=== PATIENT | female | born 1990 | race Two or more races ===

== ENCOUNTER 2020-10-13 00:03 | Observation (INO) | payer SELFPAY ==
[2020-10-13] MEDS ORDERED: MORPHINE SULFATE 10 MG/ML INJ IV ONE (00:15)
[2020-10-13] MEDS ORDERED: NORMAL SALINE 1000 ML 1,000 ML IV ONE ×2 (00:15→01:13)
[2020-10-13] MEDS ORDERED: ONDANSETRON HCL INJ/PF 4 MG/2 ML SDV IV ONE ×2 (00:15→17:45)
--- NOTE | 2020-10-13 00:18 | ER Document Report ---
ED Medical Screen (RME) - General Stated Complaint: UPPER STOMACH PAIN,BLOATED,CONSTIPATION Time Seen by Provider: 10/13/20 00:12 Notes: Patient is a 30-year-old female presents emergency department with a chief complaint of abdominal pain, nausea, and vomiting. Patient reports that her symptoms started at 8:00 tonight. The pain is generalized. States that she has problems with constipation, but had a bowel movement today. Exam: Tender generalized abdomen. I have greeted and performed a rapid initial assessment of this patient. A comprehensive ED assessment and evaluation of the patient, analysis of test results and completion of medical decision making process will be conducted by an additional ED providers. Physical Exam - Vital signs Vitals: Temp Pulse Resp BP Pulse Ox 98.6 F 75 18 109/65 100 10/13/20 00:10 10/13/20 00:10 10/13/20 00:10 10/13/20 00:10 10/13/20 00:10 Course - Vital Signs Vital signs: Temp Pulse Resp BP Pulse Ox 98.6 F 75 18 109/65 100 10/13/20 00:10 10/13/20 00:10 10/13/20 00:10 10/13/20 00:10 10/13/20 00:10
[2020-10-13 00:56] LABS: ABSOLUTE BASOPHILS # (AUTO) 0.1 10^3/uL (0.0-0.2); ABSOLUTE LYMPHOCYTES (AUTO) 2.2 10^3/uL (0.5-4.7); ABSOLUTE MONOCYTES (AUTO) 0.7 10^3/uL (0.1-1.4); ABSOLUTE NEUT (AUTO) 13.2 10^3/uL (1.7-8.2); BASOPHILS % (AUTO) 0.5 % (0-2); EOSINOPHILS % (AUTO) 0.2 % (0-6); HEMATOCRIT 40.3 % (36.0-47.0); HEMOGLOBIN 13.6 g/dL (12.0-15.5); LYMPHOCYTES % (AUTO) 13.6 % (13-45); MEAN CORPUSCULAR HEMOGLOBIN 28.7 pg (27.0-33.4); MEAN CORPUSCULAR HGB CONC 33.8 g/dL (32.0-36.0); MEAN CORPUSCULAR VOLUME 85 fl (80-97); MONOCYTES % (AUTO) 4.2 % (3-13); PLATELET COUNT 324 10^3/uL (150-450); RED BLOOD COUNT 4.74 10^6/uL (3.72-5.28); RED CELL DISTRIBUTION WIDTH 12.7 % (11.5-14.0); SEGMENTED NEUTROPHILS % (AUTO) 81.5 % (42-78); TOTAL CELLS COUNTED % (AUTO) 100 %; WHITE BLOOD COUNT 16.3 10^3/uL (4.0-10.5)
[2020-10-13 01:09] LABS: ALBUMIN 4.3 g/dL (3.5-5.0); ALKALINE PHOSPHATASE 81 U/L (38-126); ANION GAP 10 (5-19); ASPARTATE AMINO TRANSFERASE 26 U/L (14-36); BILIRUBIN,DIRECT 0.2 mg/dL (0.0-0.4); BILIRUBIN,TOTAL 0.3 mg/dL (0.2-1.3); BLOOD UREA NITROGEN 13 mg/dL (7-20); CALCIUM 9.4 mg/dL (8.4-10.2); CARBON DIOXIDE 28 mmol/L (22-30); CHLORIDE 103 mmol/L (98-107); GLUCOSE 124 mg/dL (75-110); POTASSIUM 4.1 mmol/L (3.6-5.0); TOTAL PROTEIN 7.6 g/dL (6.3-8.2)
--- NOTE | 2020-10-13 01:19 | ER Document Report ---
ED GI/ - General Chief Complaint: Abdominal Pain Stated Complaint: UPPER STOMACH PAIN,BLOATED,CONSTIPATION Time Seen by Provider: 10/13/20 00:12 Mode of Arrival: Ambulatory Information source: Patient Notes: 30-year-old female presents to ED for complaint of right upper abdominal pain with nausea and vomiting. She states she has had abdominal pain off and on for years comes and go 2 days ago she had some severe pain but it went away then again today at 7 PM she started with abdominal pain nausea and vomiting. She states she had very small brown stools this morning. She states she also has generalized abdominal pain but the worst is on the left upper quadrant. He did states she was seen at another hospital recently and told she had diverticulitis and started on antibiotics. She states she has also been told she has severe constipation. She denies any fevers. She was seen on triage had blood work urine IV fluids morphine and Zofran ordered. She was also ordered a CT IV and oral contrasted abdomen pelvis. Constitutional: Negative for fever. HENT: Negative for sore throat. Eyes: Negative for visual changes. Cardiovascular: Negative for chest pain. Respiratory: Negative for shortness of breath. Gastrointestinal: Severe abdominal pain mostly on the right upper side. She states she has had this pain off and on for a year she had a couple days ago and that she has it again tonight. She states it feels like something is tearing inside of her belly. According to the she is constantly constipated. Genitourinary: Negative for dysuria. Musculoskeletal: Negative for back pain. Skin: Negative for rash. Neurological: Negative for headaches, weakness or numbness. 10 point ROS negative except as marked above and in HPI. VITAL SIGNS: Within normal limits. GENERAL: No acute distress, non-toxic appearance. HEAD: Normal with no signs of head trauma. EYES: PERRLA, EOMI, conjunctiva normal, no discharge. EARS: Hearing grossly intact. NOSE: Normal. THROAT: Oropharynx is normal. NECK: Normal range of motion, no tenderness, supple, no lymphadenopathy, No adenopathy, no JVD. CHEST: Clear breath sounds bilaterally. No wheezes, rales, or rhonchi. CARDIAC: Regular rate and rhythm. S1 and S2, without murmurs, gallops, or rubs. VASCULAR: No Edema. Peripheral pulses normal and equal in all extremities. ABDOMEN: Generalized abdominal tenderness. Hyperactive bowel sounds throughout. Patient curled up in a ball from the pain. GASTROINTESTINAL: Hyperactive bowel sounds normal GENITOURINARY: Normal, No tenderness LYMPATHTIC: No lymphadenopathy noted. MUSCULOSKELETAL: Good range of motion of all major joints. Extremities without clubbing, cyanosis or edema. NEUROLOGICAL: Alert and oriented x 3. No focal sensory or strength deficits. Speech normal. Follows commands appropriately. PSYCHIATRIC: Normal Affect, judgement and mood. SKIN: Normal appearance with no rashes or lesions. - HPI Patient complains to provider of: Abdominal pain - Generalized worse on the right upper, Vomiting Onset: Other - Intermittently for the last year worse 2 days ago and again today Timing/Duration: Intermittent Quality of pain: Burning, Stabbing Severity at maximum: Severe Severity in ED: Severe Pain Level: 5 Location: LUQ, LLQ LMP: September 26, 2020 Associated symptoms: Nausea, Vomiting Exacerbated by: Movement, Walking Relieved by: Denies Similar symptoms previously: Yes Recently seen / treated by doctor: Yes - Related Data Allergies/Adverse Reactions: No Known Allergies Allergy (Unverified 10/13/20 01:08) Past Medical History - General Information source: Patient - Social History Smoking Status: Never Smoker Frequency of alcohol use: None Drug Abuse: None Lives with: Family Family History: Reviewed & Not Pertinent Patient has suicidal ideation: No Patient has homicidal ideation: No - Past Medical History Cardiac Medical History: Reports: None Pulmonary Medical History: Reports: None EENT Medical History: Reports: None Neurological Medical History: Reports: None Endocrine Medical History: Reports: None Renal/ Medical History: Reports: None Malignancy Medical History: Reports: None GI Medical History: Reports: None, Other - colitis Musculoskeletal Medical History: Reports None Skin Medical History: Reports None Traumatic Medical History: Reports: None Infectious Medical History: Reports: None Past Surgical History: Reports: Hx Section - Immunizations Immunizations up to date: Yes Physical Exam - Vital signs Vitals: Temp Pulse Resp BP Pulse Ox 98.6 F 75 18 109/65 100 10/13/20 00:10 10/13/20 00:10 10/13/20 00:10 10/13/20 00:10 10/13/20 00:10 Course - Vital Signs Vital signs: Temp Pulse Resp BP Pulse Ox 98.6 F 75 18 109/65 100 10/13/20 00:10 10/13/20 00:10 10/13/20 00:10 10/13/20 00:10 10/13/20 00:10 10/13/20 07:10 Ultrasound of abdomen with negative for cholecystitis but the CT with IV and oral contrast was positive for cholecystitis. I discussed these results with Dr. Hidalgo. She did have an elevated white count of 16.4. I consulted Dr. Aguilera who stated that she needed a negative Covid in order to go to surgery. That was completed and negative. I called him back stated he would be taking her to surgery to go ahead and admit her to him. He did recommend that I give her Zosyn IV when I call him the first time. This was completed. Patient has been admitted to Dr. Aguilera to go for a cholecystectomy. - Laboratory Results Result Diagrams: 10/13/20 00:31 10/13/20 00:31 Laboratory Results Interpreted: 10/13/20 10/13/20 10/13/20 00:31 00:31 01:09 WBC 16.3 H Absolute Neuts (auto) 13.2 H Seg Neutrophils % 81.5 H Glucose 124 H Urine Ketones TRACE H Urine Ascorbic Acid 40 H Critical Laboratory Results Reviewed: No Critical Results - Radiology Results Critical Radiology Results Reviewed: Yes Attending or Supervising Physician who Reviewed Radiology: TATUM HIDALGO IV Discharge - Discharge Clinical Impression: Cholecystitis Disposition: ADMITTED INPATIENT Admitting Provider: Arthur Aguilera Unit Admitted: Surgical Floor
[2020-10-13 01:41] LABS: APPEARANCE,URINE SLIGHTLY-CLOUDY; BILIRUBIN,URINE NEGATIVE (NEGATIVE); COLOR,URINE YELLOW; GLUCOSE, URINE NEGATIVE (NEGATIVE); KETONES,URINE TRACE mg/dL (NEGATIVE); LEUKOCYTE ESTERASE,URINE NEGATIVE (NEGATIVE); NITRITE,URINE NEGATIVE (NEGATIVE); PROTEIN,URINE NEGATIVE (NEGATIVE); URINE SPECIFIC GRAVITY 1.019; UROBILINOGEN,URINE NEGATIVE mg/dL (<2.0)
--- NOTE | 2020-10-13 03:41 | RADIOLOGY REPORT (SQ) ---
Ultrasound of the right upper quadrant of the abdomen: 10/13/2020 2:38 AM [employer]UAL [employer]ENT Technique: Multiple grayscale color Doppler images of the right upper quadrant of the abdomen were obtained. Comparison: None available History: 30-year old patient with right upper quadrant abdominal pain. Findings: The visualized portions of the hepatic parenchyma appears normal. There is normal direction of flow seen in the main portal vein. There is no evidence of pericholecystic fluid, gallbladder wall thickening, or cholelithiasis. Sonographic Valadez's sign was positive. The common duct measures 2-3 mm. The right kidney measures up to 11.1 cm in length. The right kidney demonstrates normal cortical echogenicity with no evidence to suggest hydronephrosis. The visualized portions of the IVC, abdominal aorta, and pancreatic head appear normal. No free intraperitoneal fluid is seen. Impression: The gallbladder is mildly distended without evidence of cholelithiasis. Sonographic Valadez's sign was reported to be positive. The common duct is within normal limits.
--- NOTE | 2020-10-13 04:52 | RADIOLOGY REPORT (SQ) ---
CLINICAL HISTORY: abdominal pain COMPARISON: None. 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 FINDINGS: Lower lungs are clear. Abdomen: The liver is normal in appearance. There is no biliary dilatation. Gallbladder wall is mildly thickened measuring up to 5 mm. Stomach is mildly distended with fluid. The pancreas and spleen are normal in appearance. The adrenal glands and kidneys are unremarkable. Abdominal aorta is normal in course and caliber without aneurysm. There is no free air. There is no retroperitoneal adenopathy. Pelvis: There is no bowel obstruction. Urinary bladder is unremarkable. There is no free fluid. Appendix is normal. Uterus is normal in size. Skeleton: There are no acute osseous findings. No suspicious bony lesions. IMPRESSION: Probable acute cholecystitis.
[2020-10-13] MEDS ORDERED: PIPERACILLIN/TAZOBACTAM 3.375 GM VIAL IV ONE (05:15)
[2020-10-13] MEDS ORDERED: DEXTROSE 5%-LACTATED RINGERS 1,000 ML IV PRN (06:46)
[2020-10-13] MEDS ORDERED: MORPHINE SULFATE 10 MG/ML INJ IV PRN ×2 (06:46→09:14)
[2020-10-13] MEDS ORDERED: BUPIVACAINE HCL 0.25 % INJ/PF (2.5 MG/1 ML) 30 ML VIAL ONE (08:01)
[2020-10-13] MEDS ORDERED: FENTANYL CITRATE INJ/PF 100 MCG/2 ML AMPUL ONE (08:11)
[2020-10-13] MEDS ORDERED: MIDAZOLAM 2 MG/2 ML INJ ONE (08:11)
[2020-10-13] MEDS ORDERED: MORPHINE SULFATE 10 MG/ML INJ ONE (08:11)
[2020-10-13] MEDS ORDERED: PROPOFOL INJ 200 MG/20 ML VIAL IV ONE (08:12)
[2020-10-13] MEDS ORDERED: SUGAMMADEX SODIUM 200 MG/2 ML SDV IV ONE (08:12)
--- NOTE | 2020-10-13 08:51 | PDOC H&P ---
History of Present Illness Admission Date/PCP: 10/13/20 06:54 Patient complains of: severe right upper quadrant pain History of Present Illness: MARISSA FABIAN is a 30 year old female with a 1 month history of worsening, episodic right upper quadrant pain. Patient reports that it is exacerbated by eating, especially fatty foods. The pain starts in the right upper quadrant, and radiates around to the back and to the left upper quadrant. Her pain is now constant and unrelenting. She presented to the emergency department where work- up was performed. She does report nausea and vomiting. She denies alcohol use, steroids, smoking, excessive caffeine ingestion, or excessive NSAID use. She has been taking Tylenol, Aleve, and Zofran at home without improvement of her symptoms. The patient denies chest pain, shortness of breath, fevers, chills, melena, hematochezia, hematemesis, dizziness, orthostasis, blurry vision, headache. Past Medical History Cardiac Medical History: Reports: None Pulmonary Medical History: Reports: None EENT Medical History: Reports: None Neurological Medical History: Reports: None Endocrine Medical History: Reports: None Renal/ Medical History: Reports: None Malignancy Medical History: Reports: None GI Medical History: Reports: None, Other - colitis Musculoskeltal Medical History: Reports: None Skin Medical History: Reports: None Traumatic Medical History: Reports: None Infectious Medical History: Reports: None Past Surgical History Past Surgical History: Reports: Section Social History Lives with: Family Smoking Status: Never Smoker Frequency of Alcohol Use: None Hx Recreational Drug Use: No Hx Prescription Drug Abuse: No Family History Family History: Reviewed & Not Pertinent Parental Family History Reviewed: Yes Children Family History Reviewed: Yes Sibling(s) Family History Reviewed.: Yes Medication/Allergy Allergies/Adverse Reactions: No Known Allergies Allergy (Unverified 10/13/20 01:08) Review of Systems Constitutional: ABSENT: chills, fatigue, fever(s), weakness Eyes: ABSENT: visual disturbances Ears: ABSENT: hearing changes Nose, Mouth, and Throat: ABSENT: sore throat Cardiovascular: ABSENT: chest pain Respiratory: ABSENT: cough Gastrointestinal: PRESENT: abdominal pain, bloating, nausea, vomiting. ABSENT: hematemesis, hematochezia, melena Genitourinary: ABSENT: dysuria Musculoskeletal: PRESENT: back pain Integumentary: ABSENT: pruritus, rash Neurological: ABSENT: confusion, convulsions, dizziness Psychiatric: ABSENT: anxiety, hallucinations Endocrine: ABSENT: cold intolerance, heat intolerance Hematologic/Lymphatic: ABSENT: easy bleeding, easy bruising Physical Exam Vital Signs: Temp Pulse Resp BP Pulse Ox 98.6 F 75 18 109/65 100 10/13/20 00:10 10/13/20 00:10 10/13/20 00:10 10/13/20 00:10 10/13/20 00:10 Intake & Output 10/12/20 10/13/20 10/14/20 06:59 06:59 06:59 Intake Total 1000 Balance 1000 Weight 64.41 kg General appearance: PRESENT: cooperative Head exam: PRESENT: atraumatic, normocephalic Eye exam: PRESENT: EOMI, PERRLA. ABSENT: scleral icterus Mouth exam: PRESENT: neck supple Neck exam: ABSENT: meningismus, tenderness, thyromegaly, tracheal deviation Respiratory exam: PRESENT: unlabored. ABSENT: tachypnea, wheezes Cardiovascular exam: ABSENT: tachycardia Vascular exam: PRESENT: normal capillary refill GI/Abdominal exam: PRESENT: guarding - righ upper quadrant, Valadez's sign, soft, tenderness - right upper quadrant. ABSENT: distended Rectal exam: PRESENT: deferred Extremities exam: ABSENT: clubbing Musculoskeletal exam: ABSENT: deformity Neurological exam: PRESENT: alert, awake, oriented to person, oriented to place, oriented to time, oriented to situation Psychiatric exam: ABSENT: agitated, anxious Focused psych exam: ABSENT: delusional Skin exam: ABSENT: cyanosis, erythema, jaundice Results Laboratory Results: 10/13/20 00:31 10/13/20 00:31 10/13/20 10/13/20 10/13/20 00:31 00:31 01:09 WBC 16.3 H RBC 4.74 Hgb 13.6 Hct 40.3 MCV 85 MCH 28.7 MCHC 33.8 RDW 12.7 Plt Count 324 Seg Neutrophils % 81.5 H Sodium 140.7 Potassium 4.1 Chloride 103 Carbon Dioxide 28 Anion Gap 10 BUN 13 Creatinine 0.74 Est GFR ( Amer) > 60 Glucose 124 H Calcium 9.4 Total Bilirubin 0.3 AST 26 Alkaline Phosphatase 81 Total Protein 7.6 Albumin 4.3 Lipase 146.5 Urine Color YELLOW Urine Appearance SLIGHTLY-CLOUDY Urine pH 6.0 Ur Specific [place] 1.019 Urine Protein NEGATIVE Urine Glucose (UA) NEGATIVE Urine Ketones TRACE H Urine Blood NEGATIVE Urine Nitrite NEGATIVE Ur Leukocyte Esterase NEGATIVE Urine WBC (Auto) 3 Urine RBC (Auto) 2 Impressions: Abdomen/Pelvis CT 10/13/20 00:00 IMPRESSION: Probable acute cholecystitis. Assessment & Plan - Diagnosis (1) Cholecystitis Is this a current diagnosis for this admission?: Yes - Time Anticipated Discharge Disposition: Home, Self Care Anticipated Discharge Timeframe: within 24 hours - Plan Summary Plan Summary: 30-year-old female with history, physical, and imaging consistent with acute cholecystitis. I have recommended surgical intervention, and she has agreed. Plan for laparoscopic cholecystectomy today. Risks/benefits discussed, informed consent obtained, and all questions answered.
[2020-10-13] MEDS ORDERED: DIPHENHYDRAMINE HCL 50 MG/ML VIAL IV PRN (09:14)
[2020-10-13] MEDS ORDERED: ONDANSETRON HCL INJ/PF 4 MG/2 ML SDV IV PRN (09:14)
[2020-10-13] MEDS ORDERED: MEPERIDINE HCL/PF INJ 25 MG/1 ML DISP.SYRIN IV PRN (09:14)
[2020-10-13] MEDS ORDERED: PROMETHAZINE HCL INJ 25 MG/1 ML VIAL IV PRN (09:14)
[2020-10-13] MEDS ORDERED: OXYCODONE-ACETAMINOPHEN 5-325 MG TABLET PO PRN ×2 (09:14)
[2020-10-13] MEDS ORDERED: FENTANYL CITRATE INJ/PF 100 MCG/2 ML AMPUL IV PRN ×3 (09:14)
--- NOTE | 2020-10-13 09:47 | Operative Report ---
Nonrecallable Operative Report DATE OF SURGERY: 10/13/20 PREOPERATIVE DIAGNOSIS: Acute cholecystitis POSTOPERATIVE DIAGNOSIS: Same as above OPERATION: Laparoscopic cholecystectomy SURGEON: CHARIS CARROLL ANESTHESIA: GA TISSUE REMOVED OR ALTERED: Gallbladder COMPLICATIONS: None apparent ESTIMATED BLOOD LOSS: Minimal PROCEDURE: Drains/implants: None. Procedure in detail: After informed consent was obtained, the patient was brought into the operating room and laid in the supine position. The area of the abdomen was prepped and draped in a normal sterile fashion. A curvilinear infraumbilical incision was created with a 15 blade scalpel. Dissection was carried through the subcutaneous tissues using sharp and blunt dissection. The cicatrix was identified, grasped with a Cee clamp, and retracted upwards. The linea alba fascia was incised sharply, the abdomen was entered sharply. The balloon trocar was inserted, and pneumoperitoneum was achieved. A subxiphoid 5 mm port was then placed under direct laparoscopic visualization. 2 more 5 mm ports were placed in the right upper quadrant in similar fashion. Atraumatic graspers were placed through the 5 mm ports. The gallbladder was found to be tense and distended, requiring decompression via a cyst aspiration needle. Approximately 60 cc of dark, thick, sludgelike bile was aspirated from the gallbladder. It was then much more amenable to manipulation. The gallbladder was retracted cephalad and laterally. Dissection was begun at the triangle of [place]ot. The cystic duct and cystic artery were fully visualized and skeletonized, seeing the liver through the triangle. Once the critical view of safety was obtained, the cystic duct and cystic artery were clipped and cut with laparoscopic instruments. The gallbladder was then removed from the abdomen through the infraumbilical port site. The camera was reinserted. The hilum was then inspected. The hilum was found to be free of any leakage of blood or bile. Once this was confirmed, the 5 mm trochars were removed. The infraumbilical trocar was removed, and pneumoperitoneum was relieved. The infraumbilical fascia was closed using 0 Vicryl suture in [id number] fashion. The overlying skin was closed using 4-0 Vicryl Rapide suture in subcuticular fashion. Dressings were placed, and the procedure was concluded. All sponge, instrument, and needle counts were correct x2. Condition: Stable.
[2020-10-13] MEDS ORDERED: LIDOCAINE 2% INJ-PF (20 MG/ML) 2 ML AMPUL ONE (10:30)
[2020-10-13] MEDS ORDERED: ONDANSETRON HCL INJ/PF 4 MG/2 ML SDV ONE ×2 (10:30→17:23)
[2020-10-13] MEDS ORDERED: KETOROLAC TROMETHAMINE 60 MG/2 ML SDV ONE (10:30)
[2020-10-13] MEDS ORDERED: DEXAMETHASONE SOD PHOSPHATE INJ 4 MG/1 ML VIAL ONE (10:30)
[2020-10-13] MEDS ORDERED: SUCCINYLCHOLINE CHLORIDE INJ 200 MG/10 ML VIAL ONE (10:30)
[2020-10-13] MEDS ORDERED: ROCURONIUM BROMIDE INJ 50 MG/5 ML VIAL IV ONE (10:30)
[2020-10-13] MEDS: FAMOTIDINE INJ/PF 20 MG/2 ML SDV IV SCH ×2 (11:01→21:43)
[2020-10-13] MEDS ORDERED: HYDROCODONE/ACETAMINOPHEN 10-325 MG TABLET PO PRN (11:58)
[2020-10-13] MEDS: PIPERACILLIN SODIUM/TAZOBACTAM 3.375 GM in NORMAL SALINE 100 ML IV SCH ×3 (12:47→23:30)
[2020-10-13] MEDS ORDERED: KETOROLAC TROMETHAMINE INJ/PF 30 MG/1 ML SDV IV SCH (14:00)
[2020-10-13] MEDS: ONDANSETRON HCL INJ/PF 4 MG/2 ML SDV IV PRN ×2 (14:04→20:43)
[2020-10-13] MEDS ORDERED: ACETAMINOPHEN 1,000 MG/100 ML RTUPB IV ONE ×2 (20:00→20:28)
[2020-10-13] MEDS ORDERED: KETOROLAC TROMETHAMINE INJ/PF 30 MG/1 ML SDV IV PRN (20:00)
[2020-10-14] MEDS ORDERED: ACETAMINOPHEN 1,000 MG/100 ML RTUPB IV SCH ×3 (02:00→14:00)
[2020-10-14] MEDS ORDERED: ACETAMINOPHEN 1,000 MG/100 ML RTUPB IV ONE (05:31)
[2020-10-14] MEDS: PIPERACILLIN SODIUM/TAZOBACTAM 3.375 GM in NORMAL SALINE 100 ML IV SCH (06:18)
[2020-10-14 07:47] LABS: ABSOLUTE BASOPHILS # (AUTO) 0.1 10^3/uL (0.0-0.2); ABSOLUTE EOSINOPHILS # (AUTO) 0.2 10^3/uL (0.0-0.6); ABSOLUTE LYMPHOCYTES (AUTO) 1.6 10^3/uL (0.5-4.7); ABSOLUTE MONOCYTES (AUTO) 0.4 10^3/uL (0.1-1.4); ABSOLUTE NEUT (AUTO) 5.8 10^3/uL (1.7-8.2); BASOPHILS % (AUTO) 0.7 % (0-2); EOSINOPHILS % (AUTO) 1.9 % (0-6); HEMATOCRIT 34.3 % (36.0-47.0); HEMOGLOBIN 11.8 g/dL (12.0-15.5); LYMPHOCYTES % (AUTO) 20.3 % (13-45); MEAN CORPUSCULAR HEMOGLOBIN 30.1 pg (27.0-33.4); MEAN CORPUSCULAR HGB CONC 34.5 g/dL (32.0-36.0); MEAN CORPUSCULAR VOLUME 87 fl (80-97); MONOCYTES % (AUTO) 5.5 % (3-13); PLATELET COUNT 218 10^3/uL (150-450); RED BLOOD COUNT 3.93 10^6/uL (3.72-5.28); RED CELL DISTRIBUTION WIDTH 12.5 % (11.5-14.0); SEGMENTED NEUTROPHILS % (AUTO) 71.6 % (42-78); TOTAL CELLS COUNTED % (AUTO) 100 %; WHITE BLOOD COUNT 8.1 10^3/uL (4.0-10.5)
[2020-10-14 07:58] LABS: ALBUMIN 3.1 g/dL (3.5-5.0); ALKALINE PHOSPHATASE 58 U/L (38-126); ANION GAP 6 (5-19); ASPARTATE AMINO TRANSFERASE 46 U/L (14-36); BILIRUBIN,DIRECT 0.3 mg/dL (0.0-0.4); BILIRUBIN,TOTAL 0.5 mg/dL (0.2-1.3); BLOOD UREA NITROGEN 11 mg/dL (7-20); CALCIUM 8.2 mg/dL (8.4-10.2); CARBON DIOXIDE 24 mmol/L (22-30); CHLORIDE 107 mmol/L (98-107); GLUCOSE 86 mg/dL (75-110); POTASSIUM 3.7 mmol/L (3.6-5.0); TOTAL PROTEIN 5.9 g/dL (6.3-8.2)
[2020-10-14] MEDS: FAMOTIDINE INJ/PF 20 MG/2 ML SDV IV SCH (09:18)
--- NOTE | 2020-10-14 10:04 | PDOC DISCHARGE SUMMARY ---
General - Admit/Disc Date/PCP Admission Date/Primary Care Provider: 10/13/20 06:54 Discharge Date: 10/14/20 - Discharge Diagnosis Final Diagnosis: Acute cholecystitis with cholelithiasis - Assessment Summary: 30-year-old female presents emergency department with abdominal pain nausea vomiting right upper quadrant tenderness and gallbladder ultrasonography with findings consistent can gallbladder wall; CT scan of the abdomen and pelvis confirmed thickened gallbladder wall with findings consistent with acute cholecystitis. The patient was admitted to the acute care service, taken to the operating room on the morning of 10/13/[address] Aguilera, and underwent laparoscopic cholecystectomy. She tolerated procedure well there are no post procedure complication. Her diet was advanced and she tolerated this well. By the following morning, after recovering from nausea and vomiting, she felt better. Her laboratory profile was normal, and she was tolerating a diet and ambulating. She was felt to be ready for discharge home Patient discharged home to care of her family follow-up with Dr. Aguilera, [facility]. She will take Tylenol and/or Motrin as needed pain. She may shower in 48 hours. - Additional Information Resuscitation Status: Full Code Home Medications: Acetaminophen [Mapap] 650 mg PO Q6HP PRN 10/13/20 Famotidine [Acid Controller] 20 mg PO BID 10/13/20 Metoclopramide HCl [Reglan] 10 mg PO Q6HP PRN 10/13/20 History of Present Illiness History of Present Illness: MARISSA FABIAN is a 30 year old female Physical Exam Vital Signs: Temp Pulse Resp BP Pulse Ox 97.5 F 67 16 99/55 L 100 10/14/20 07:40 10/14/20 07:17 10/14/20 07:17 10/14/20 07:17 10/14/20 07:17 Intake & Output 10/13/20 10/14/20 10/15/20 06:59 06:59 06:59 Intake Total 1000 3071 Output Total 1550 Balance 1000 1521 Weight 64.41 kg 71.6 kg Results Laboratory Results: WBC 8.1 10^3/uL (4.0-10.5) 10/14/20 07:26 RBC 3.93 10^6/uL (3.72-5.28) 10/14/20 07:26 Hgb 11.8 g/dL (12.0-15.5) L 10/14/20 07: Hct 34.3 % (36.0-47.0) L 10/14/20 07: MCV 87 fl (80-97) 10/14/20 07:26 MCH 30.1 pg (27.0-33.4) 10/14/20 07: MCHC 34.5 g/dL (32.0-36.0) 10/14/20 07: RDW 12.5 % (11.5-14.0) 10/14/20 07:26 Plt Count 218 10^3/uL (150-450) 10/14/20 07: Lymph % (Auto) 20.3 % (13-45) 10/14/20 07: Emanuel % (Auto) 5.5 % (3-13) 10/14/20 07: Eos % (Auto) 1.9 % (0-6) 10/14/20 07: Baso % (Auto) 0.7 % (0-2) 10/14/20 07: Absolute Neuts (auto) 5.8 10^3/uL (1.7-8.2) 10/14/20 07: Absolute Lymphs (auto) 1.6 10^3/uL (0.5-4.7) 10/14/20 07: Absolute Monos (auto) 0.4 10^3/uL (0.1-1.4) 10/14/20 07: Absolute Eos (auto) 0.2 10^3/uL (0.0-0.6) 10/14/20 07: Absolute Basos (auto) 0.1 10^3/uL (0.0-0.2) 10/14/20 07: Seg Neutrophils % 71.6 % (42-78) 10/14/20 07: Sodium 137.2 mmol/L (137-145) 10/14/20 07: Potassium 3.7 mmol/L (3.6-5.0) 10/14/20 07: Chloride 107 mmol/L (98-107) 10/14/20 07: Carbon Dioxide 24 mmol/L (22-30) 10/14/20 07: Anion Gap 6 (5-19) 10/14/20 07:26 BUN 11 mg/dL (7-20) 10/14/20 07:26 Creatinine 0.76 mg/dL (0.52-1.25) 10/14/20 07:26 Est GFR ( Amer) > 60 (>60) 10/14/20 07:26 Est GFR (MDRD) Non-Af > 60 (>60) 10/14/20 07:26 Glucose 86 mg/dL (75-110) 10/14/20 07:26 Calcium 8.2 mg/dL (8.4-10.2) L 10/14/20 07:26 Total Bilirubin 0.5 mg/dL (0.2-1.3) 10/14/20 07:26 Direct Bilirubin 0.3 mg/dL (0.0-0.4) 10/14/20 07:26 Neonat Total Bilirubin Not Reportable 10/14/20 07:26 Neonat Direct Bilirubin Not Reportable 10/14/20 07:26 Neonat Indirect Bili Not Reportable 10/14/20 07:26 AST 46 U/L (14-36) H 10/14/20 07:26 ALT 45 U/L (<35) H 10/14/20 07:26 Alkaline Phosphatase 58 U/L (38-126) 10/14/20 07:26 Total Protein 5.9 g/dL (6.3-8.2) L 10/14/20 07:26 Albumin 3.1 g/dL (3.5-5.0) L 10/14/20 07:26 Lipase 146.5 U/L (23-300) 10/13/20 00:31 Urine Color YELLOW 10/13/20 01:09 Urine Appearance SLIGHTLY-CLOUDY 10/13/20 01:09 Urine pH 6.0 (5.0-9.0) 10/13/20 01:09 Ur Specific [place] 1.019 10/13/20 01:09 Urine Protein NEGATIVE mg/dL (NEGATIVE) 10/13/20 01:09 Urine Glucose (UA) NEGATIVE mg/dL (NEGATIVE) 10/13/20 01:09 Urine Ketones TRACE mg/dL (NEGATIVE) H 10/13/20 01:09 Urine Blood NEGATIVE (NEGATIVE) 10/13/20 01:09 Urine Nitrite NEGATIVE (NEGATIVE) 10/13/20 01:09 Urine Bilirubin NEGATIVE (NEGATIVE) 10/13/20 01:09 Urine Urobilinogen NEGATIVE mg/dL (<2.0) 10/13/20 01:09 Ur Leukocyte Esterase NEGATIVE (NEGATIVE) 10/13/20 01:09 Urine WBC (Auto) 3 /HPF 10/13/20 01:09 Urine RBC (Auto) 2 /HPF 10/13/20 01:09 Squamous Epi Cells Auto 2 /HPF 10/13/20 01:09 Urine Mucus (Auto) RARE /LPF 10/13/20 01:09 Urine Ascorbic Acid 40 (NEGATIVE) H 10/13/20 01:09 Urine HCG, Qual NEGATIVE (NEGATIVE) 10/13/20 01:09 Influenza A (RT-PCR) NEGATIVE (NEGATIVE) 10/13/20 05:30 Influenza B (RT-PCR) NEGATIVE (NEGATIVE) 10/13/20 05:30 RSV (RT-PCR) NEGATIVE (NEGATIVE) 10/13/20 05:30 SARS-CoV-2 Rap RNA(RT-PCR) NEGATIVE (NEGATIVE) 10/13/20 05:30 Impressions: Abdomen/Pelvis CT 10/13/20 00:00 IMPRESSION: Probable acute cholecystitis.
[2020-10-14 10:31] VITALS: BP 103/53
== END 2020-10-14 10:57 | disposition home or self-care (01) ==
LOC: ER 00:03 → EH 06:54 → INTOOBSV 06:54 → 2N 10:39
PROVIDERS: ATTEND Surgery
DX: K80.12 Calculus of gallbladder with acute and chronic cholecystitis without obstruction (principal); Z01.812 Encounter for preprocedural laboratory examination; Z20.822 Contact with and (suspected) exposure to COVID-19; Z87.19 Personal history of other diseases of the digestive system
CPT/HCPCS: 99285; 96361; 96375; 96365; 36415 ×2; 83690; 85025 ×2; 0241U; 81025; 80053 ×2; 81001; 88304 ×2; 76705; 74177; 99140; 00790; 47562; G0378 ×3; J2250; J3490 ×3; J1100; J1885 ×2; J3010; J2270; J0330; J2405; J7121; J7050 ×2; J7030; J2704; S0028 ×2; J2543 ×2; J0131 ×2; C9803; 790